=== PATIENT | female | born 1980 | race Caucasian/White ===

== ENCOUNTER → 2022-03-05 | Outpatient (RCR) | payer OTHER | END | disposition home or self-care (01) | PROVIDERS: ATTEND Family Medicine | DX: S93.421D Sprain of deltoid ligament of right ankle, subsequent encounter (principal); M17.0 Bilateral primary osteoarthritis of knee; X58.XXXD Exposure to other specified factors, subsequent encounter ==

== ENCOUNTER 2022-03-22 13:01 | Outpatient (RCR) | payer OTHER | END 2022-04-01 13:37 | disposition home or self-care (01) | PROVIDERS: ATTEND Family Medicine | DX: Z02.89 Encounter for other administrative examinations (principal); S93.421D Sprain of deltoid ligament of right ankle, subsequent encounter; M17.0 Bilateral primary osteoarthritis of knee; M84.374D Stress fracture, right foot, subsequent encounter for fracture with routine healing; X58.XXXD Exposure to other specified factors, subsequent encounter; Y92.212 Middle school as the place of occurrence of the external cause ==

== ENCOUNTER → 2022-05-01 | Outpatient (CLI) | payer OTHER ==
--- NOTE | 2022-05-01 11:34 | Diagnostic Imaging Report ---
EXAMINATION: Right lower extremity MRI without contrast, 05/01/2022. TECHNIQUE: Multiplanar, multisequence bpg-fuvdoble-wotlaoba MRI of the right lower extremity was accomplished. INDICATION: Rolled ankle. 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 Injury in December of 2021 with continued ankle pain. FINDINGS: The Achilles tendon is intact. The plantar fascia is unremarkable. The flexor and extensor tendons appear intact. There is some fluid within the sheath of the flexor hallucis longus tendon perhaps due to a focal tenosynovitis. This lies at the level of the posterior border of the talus. The posterior and anterior inferior tibiofibular ligaments appear intact. The anterior talofibular ligament and posterior talofibular ligament are intact. The deltoid ligament is intact. The calcaneofibular ligament is intact. There is no acute osseous abnormality. IMPRESSION: 1. Findings of tenosynovitis along the course of the flexor hallucis longus tendon which is intact. Remaining visualized tendons unremarkable. 2. Ligaments intact. Dictated by: Dictated on workstation # [id number]
== END ==
LOC: RAD 09:50
PROVIDERS: ATTEND Podiatrist Foot & Ankle Surgery
DX: S93.401A Sprain of unspecified ligament of right ankle, initial encounter (principal); M76.71 Peroneal tendinitis, right leg; X58.XXXA Exposure to other specified factors, initial encounter
CPT/HCPCS: 73721

== ENCOUNTER 2022-07-05 05:31 | Outpatient (CLI) | payer OTHER, BC ==
[~2022-07-05] VITALS: Ht 168 cm; Wt 65.9 kg
[2022-07-05] MEDS ORDERED: TR1C15 TP (10:41)
[2022-07-05] MEDS ORDERED: ALPR1TAB7 PO (10:41)
== END 2022-07-05 11:31 | disposition home or self-care (01) ==
LOC: PREOP 05:31
PROVIDERS: ATTEND Podiatrist Foot & Ankle Surgery
DX: Z01.818 Encounter for other preprocedural examination (principal)

== ENCOUNTER 2022-07-12 05:57 | Day surgery (SDC) | payer OTHER, BC ==
[~2022-07-12] VITALS: Ht 168 cm; Wt 65.9 kg
[2022-07-12] VITALS (10 sets, daily range): BP systolic 116–132; BP diastolic 82–95
[~2022-07-12 05:57] MED LIST: ALPR1TAB7 PO; TR1C15 TP
[2022-07-12] MEDS ORDERED: LACTATED RINGERS 1,000 ML IV PRN (06:15)
[2022-07-12] MEDS: ceFAZolin INJECTION 1,000 MG VIAL IV ONE ×2 (06:29→07:55)
[2022-07-12] MEDS ORDERED: NS (IVPB) 50 ML ONE (06:35)
[2022-07-12] MEDS ORDERED: MIDAZOLAM 2 MG/2 ML (VERSED) VIAL IV ONE (07:15)
[2022-07-12] MEDS ORDERED: MIDAZOLAM 2 MG/2 ML (VERSED) VIAL ONE ×3 (07:15→09:14)
[2022-07-12] MEDS ORDERED: LIDOCAINE 1% INJ 10 ML VIAL ONE (07:22)
[2022-07-12] MEDS ORDERED: BUPIVACAINE 0.5% 30 ML (SENSORCAINE) VIAL ONE (07:22)
[2022-07-12] MEDS ORDERED: LIDOCAINE PF 2% 5 ML (XYLOCAINE) VIAL ONE (07:30)
[2022-07-12] MEDS ORDERED: fentaNYL INJ 100 MCG/2 ML AMP ONE ×2 (07:30→09:07)
[2022-07-12] MEDS ORDERED: proPOfol 200 MG/20 ML (DIPRIVAN) VIAL IV ONE (07:30)
--- NOTE | 2022-07-12 07:46 | Progress Note-Pre Operative ---
Pre-Operative Progress Note Date of Available H&P: Jul 12, 2022 Date H&P Reviewed: Jul 12, 2022 Time H&P Reviewed: 07:45 Pre-Operative Diagnosis: Tarsal Tunnel Syndrome, FHL tendinosis, right DELILAH NELSON DPPancho Jul 12, 2022 07:46
[2022-07-12] MEDS ORDERED: ONDANSETRON 4 MG/2 ML (SDV) Z0FRAN ONE (08:25)
[2022-07-12] MEDS ORDERED: SEVOFLURANE (ULTANE) 15 ML INHAL SOLN ONE (08:25)
--- NOTE | 2022-07-12 09:03 | Anesthesia-General Post-Op ---
General Patient Condition Mental Status/LOC: Same as Preop Cardiovascular: Satisfactory Nausea/Vomiting: Absent Respiratory: Satisfactory Pain: Controlled Complications: Absent Post Op Complications Complications None Follow Up Care/Instructions Patient Instructions None needed. Anesthesia/Patient Condition Patient Condition Patient is doing well, no complaints, stable vital signs, no apparent adverse anesthesia problems. No complications reported per nursing. ANNY KIRBY CRNA Jul 12, 2022 09:03
--- NOTE | 2022-07-12 09:11 | Progress Note-Post Operative ---
Post-Operative Progess Note Surgeon (s)/Reservations Sales Agent (s) Surgeon DELILAH NELSON DPM Reservations Sales Agent: none Pre-Operative Diagnosis Tarsal Tunnel Syndrome, FHL tendinosis, right Post-Operative Diagnosis Same Procedure & Operative Findings Date of Procedure 07/12/22 Procedure Performed/Findings Tarsal Tunnel Release, right Anesthesia Type General Estimated Blood Loss Estimated blood loss (mL): Minimal Specimens/Packing Specimens Removed none DELILAH NELSON DPM Jul 12, 2022 09:11
[2022-07-12] MEDS ORDERED: fentaNYL INJ 100 MCG/2 ML AMP IVP ONE (09:15)
[2022-07-12] MEDS ORDERED: ONDANSETRON 4 MG/2 ML (SDV) Z0FRAN IVP PRN (09:15)
[2022-07-12] MEDS ORDERED: HYDROcodone/APAP 5 MG/325 MG (LORTAB) TAB PO PRN (09:15)
[2022-07-12] MEDS ORDERED: HYDROmorphone 2 MG/ML VIAL (DILAUDID) IV ONE (09:15)
[2022-07-12] MEDS ORDERED: LACTATED RINGERS 1,000 ML IV SCH (09:15)
[2022-07-12] MEDS ORDERED: ACHD5005 PO (09:19)
[2022-07-12] MEDS ORDERED: HYDROcodone/APAP 5 MG/325 MG (LORTAB) TAB PO ONE (10:00)
[2022-07-12] MEDS ORDERED: HYDROcodone/APAP 5 MG/325 MG (LORTAB) TAB ONE (10:02)
--- NOTE | 2022-07-12 10:57 | Physical Therapy Ortho Eval ---
PT Orthopedic Evaluation Type of Surgery Tarsal Tunnel Syndrome, FHL tendinosis, right Prior Level of Function Current Living Status: Spouse Subjective Entry Into Home: Stairs With Railing Steps Into Home: 3 Motor Control Motor Control: Motor Control WNL Transfer SCALE: Activities may be completed with or without assistive devices. 5-Qcwqjaipjb-wofskjc completes the activity by him/herself with no assistance from a helper. 5-Set-up or Clean-up Assistance-helper sets up or cleans up; patient completes activity. Gabbs assists only prior to or following the activity. 4-Supervision or Touching Assistance-helper provides verbal cues and/or touching/steadying and/or contact guard assistance as patient completes activity. Assistance may be provided throughout the activity or intermittently. 3-Partial/Moderate Assistance-helper does LESS THAN HALF the effort. Gabbs lifts, holds or supports trunk or limbs, but provides less than half the effort. 2-Substantial/Maximal Assistance-helper does MORE THAN HALF the effort. Gabbs lifts or holds trunk or limbs and provides more than half the effort. 1-Bgcvuqttb-emlihi does ALL the effort. Patient does none of the effort to complete the activity. Or, the assistance of 2 or more helpers is required for the patient to complete the activity. If activity was not attempted, code reason: 7-Patient Refused. 9-Not Applicable-not attempted and the patient did not perform the activity before the current illness, exacerbation or injury. 10-Not Attempted due to Environmental Limitations-(lack of equipment, weather restraints, etc.). 88-Not Attempted due to Medical Conditions or Safety Concerns. Transfers (B, C, W/C) (QC): 4 Gait Right Lower Extremity: Right Weight Bearing Status RLE: Non Weight Bearing Left Lower Extremity: Left Weight Bearing Status LLE: Full Weight Bearing Summary/Comments Patient ambulated 100' with axillary crutches with SBA, she has used them before and did well with them, more pain in right foot when standing, she was compliant with NWB on the RLE, patient also went up and down 1 step using crutches with CGA, cues for positioning Treatment Rendered Treatment: Therapeutic Exercises, Gait Train, Step Train Exercise Instruction: Quad Sets, Heel Slides Assessment/Goals Goal Time Frame: 1 Visit Understands HEP: Yes Safe Ambulation: Yes Plan Treatment Plan: Discharge PT/Family Agrees to Plan: Yes Time Time In: 7979 Time Out: 1026 Total Billed Treatment Time: 12 Billed Treatment Time 1 visit MARCELO Greene' ABIOLA HERNANDEZ PT Jul 12, 2022 10:57
--- NOTE | 2022-07-12 12:38 | OPERATIVE REPORT ---
DATE OF SERVICE: 07/12/2022 SURGEON: Delilah Nelson DPM. PREOPERATIVE DIAGNOSES: Tarsal tunnel syndrome, right with flexor hallucis longus tendinosis. POSTOPERATIVE DIAGNOSES: Tarsal tunnel syndrome, right with flexor hallucis longus tendinosis. PROCEDURE PERFORMED: Tarsal tunnel release, right foot. WOUND CLASS: Clean. ANESTHESIA: General. HEMOSTASIS: Pneumatic thigh tourniquet at 250 mmHg. INDICATIONS FOR PROCEDURE: This 42-year-old female presents with chronic pain associated with the right heel and medial arch. Conservative therapy has met with unsatisfactory results and the patient is agreeable to surgical intervention after risks and complications were discussed at length. No guarantees were extended to the patient and she is willing to proceed. DESCRIPTION OF PROCEDURE: The patient was brought back to the operating table and placed in a secure supine position. Appropriate timeout was performed. A pneumatic thigh tourniquet was placed on the right lower extremity over several layers of padding. The right foot was prepped and draped in a normal sterile manner after general anesthetic was induced. The right foot was then elevated and the tourniquet inflated to 250 mmHg. Attention was then directed to the medial aspect of the right foot and ankle, where a 5 cm curvilinear incision was created. The proximal incision was just posterior to the medial malleolus extending plantar in an anterior along the course of the tarsal tunnel. The incision was deepened in the same plane with the great care to identify and retract all vital neurovascular structures. The incision was bluntly carried out into the flexor retinaculum only cauterizing necessary blood vessels as encountered. The flexor retinaculum was tented and a hemostat was placed beneath the retinaculum allowing for protection of the underlying neurovascular structures. Utilizing a combination of blunt and sharp dissection, the retinaculum was released. This allowed for a good reduction of the tension overlying the tarsal tunnel of the right lower extremity. The flexor retinaculum was released as proximally as possible along the posterior aspect of the medial malleolus and extended down into the foot. The abductor hallucis muscle belly was identified and the septum was from the muscle belly after this was sharply incised allowing for less tension around the maren pedis area. Digital dilation of this area was then performed. This area was very tight and I believe this maneuver will help the patient quite a bit, anticipate it well anyway. The tourniquet was released, noting no active bleeders. Only some minor venous blood vessels were cauterized. The wound was flushed with copious amounts of normal saline and closure was then performed. Subcutaneous tissue was reapproximated with 4-0 Vicryl and skin closure was performed with 4-0 Prolene in a horizontal mattress type stitch. Postoperative injection consisted of 15 mL of 0.5% Marcaine injected in a local infusion to the surgical site with the great care to not infuse into blood vessels. Additionally, 10 mg of dexamethasone was injected into the tarsal tunnel again with great care not to infiltrate into blood vessels. Postoperative dressing consisted of Betadine soaked Adaptic, sterile 4 x 4, sterile Kerlix all secured with a posterior splint, soft roll and secured with Raymond wraps. The patient tolerated the anesthesia and procedure well and was transported from the operating room to the recovery area with vital signs stable and vascular status intact to all digits of the right foot. The patient is to follow up in my office in 10 days' period of time or sooner if necessary. She was given a prescription for hydrocodone postoperatively. Job ID: [id number] DocumentID: [id number] Dictated Date: 07/12/2022 09:28:10 Adjuster Arbitrator Date: 07/12/2022 12:36:38 Dictated By: DELILAH NELSON DPM
== END 2022-07-12 11:30 | disposition home or self-care (01) ==
LOC: SDC 05:57
PROVIDERS: ATTEND Podiatrist Foot & Ankle Surgery
DX: G57.51 Tarsal tunnel syndrome, right lower limb (principal); M77.51 Other enthesopathy of right foot and ankle; Z87.891 Personal history of nicotine dependence
CPT/HCPCS: 87081

== ENCOUNTER → 2023-03-12 | Outpatient (CLI) | payer BC, OTHER ==
[~2023-03-12] MED LIST changes: +ACHD5005 PO
--- NOTE | 2023-03-12 09:31 | Diagnostic Imaging Report ---
PROCEDURE: MRI right joint lower extremity without contrast. TECHNIQUE: Multiplanar, multisequence non contrast-enhanced MRI of the right lower extremity was accomplished. INDICATION: Pain after injury EXAMINATION: Right lower extremity MRI 03/12/2023. FINDINGS: Ankle mortise and talar dome unremarkable. Achilles tendon is intact. Plantar fascia unremarkable. Peroneal tendons intact. Flexor and extensor tendons unremarkable. There is fluid tracking along the course of the flexor hallucis longus tendon perhaps due to tenosynovitis. There is a small nonspecific effusion within the posterior tibiotalar and subtalar joint spaces. Nonspecific T2 hyperintensity within the plantar aspect of the anterior calcaneus most likely due to bone contusion. The anterior talofibular ligament and posterior talofibular intact. Anterior and posterior inferior tibiofibular ligaments intact. Deltoid ligament intact. IMPRESSION: 1. Nonspecific joint effusions within the posterior subtalar and tibiotalar joints. 2. Findings of tenosynovitis along the flexor hallucis longus tendon with the tendons intact. 3. Ligaments intact. 4. Nonspecific T2 hyperintensity within the plantar aspect of the anterior calcaneus most likely due to bone contusion. Dictated by: Dictated on workstation # [id number]
--- NOTE | 2023-03-12 09:57 | Diagnostic Imaging Report ---
PROCEDURE: MRI right lower extremity without contrast. TECHNIQUE: Multiplanar, multisequence non contrast-enhanced MRI of the right lower extremity was accomplished. INDICATION: Ankle pain, numbness and pain. EXAMINATION: Right lower extremity MRI 03/12/2023. COMPARISON: None FINDINGS: There is no acute osseous abnormality. Visualized tendons intact. There is a mild soft tissues edema surrounding the 5th metatarsal phalangeal joint possibly due to degenerative disease or a recent injury and reactive change. No significant joint effusion with no underlying acute osseous abnormality. IMPRESSION: 1. Nonspecific soft tissue swelling and possible tiny effusion at the 5th metatarsal phalangeal joint. Correlate with symptoms. Remaining visualized forefoot unremarkable. Dictated by: Dictated on workstation # [id number]
== END ==
LOC: RAD 08:00
PROVIDERS: ATTEND Podiatrist Foot & Ankle Surgery
DX: G62.9 Polyneuropathy, unspecified (principal); M25.571 Pain in right ankle and joints of right foot; M25.471 Effusion, right ankle; R20.0 Anesthesia of skin
CPT/HCPCS: 73721

== ENCOUNTER → 2023-09-04 | Outpatient (RCR) | payer OTHER | END | disposition home or self-care (01) | PROVIDERS: ATTEND Orthopaedic Surgery Foot and Ankle Surgery | DX: Z98.890 Other specified postprocedural states (principal) ==